=== PATIENT | female | born 1970 | race Caucasian/White ===

== ENCOUNTER 2024-11-21 20:23 | Emergency (ER) | payer OTHER ==
[~2024-11-21] VITALS: Ht 162.6 cm; Wt 59.0 kg
[2024-11-21] MEDS ORDERED: LEVO25TA9 PO (21:13)
[2024-11-21 22:42] LABS: BASOPHILS % (AUTO) 0.5 % (0.0-2.0); EOSINOPHILS # (AUTO) 0.1 K/uL (0.0-0.7); EOSINOPHILS % (AUTO) 0.7 % (0.0-7.0); HEMATOCRIT 44.5 % (31.2-41.9); HEMOGLOBIN 14.9 g/dL (10.9-14.3); LYMPHOCYTES # (AUTO) 1.8 K/uL (0.8-4.8); LYMPHOCYTES % (AUTO) 19.8 % (20.5-51.5); MEAN CORPUSCULAR HGB CONC 34 g/dL (32.3-35.6); MEAN CORPUSCULAR VOLUME 86.5 fL (75.5-95.3); MONOCYTES # (AUTO) 0.5 K/uL (0.1-1.30); MONOCYTES % (AUTO) 5.3 % (0.0-11.0); NEUTROPHILS # (AUTO) 6.6 K/uL (1.8-8.9); NEUTROPHILS % (AUTO) 73.7 % (38.5-71.5); PLATELET COUNT (AUTO) 242 K/uL (179-408); RED BLOOD CELL COUNT(AUTO) 5.14 MIL/uL (3.63-4.92); RED CELL DISTRIBUTION WIDTH 14.4 % (12.3-17.7); WHITE BLOOD COUNT (AUTO) 8.9 K/uL (3.8-11.8)
[2024-11-21] MEDS ORDERED: HYDROMORPHONE 1 MG/1 ML DISP.SYRIN ONE (22:44)
[2024-11-21] MEDS ORDERED: ONDANSETRON 4 MG/2 ML VIAL ONE (22:44)
[2024-11-21 22:48] LABS: CALCIUM 9.5 mg/dL (8.5-10.1); CREATININE 0.5 mg/dL (0.6-1.3); POTASSIUM 3.8 mmol/L (3.5-5.1)
[2024-11-21 22:49] LABS: DIFFERENTIAL COMMENT 1
[2024-11-21 22:55] LABS: ALBUMIN 3.9 g/dL (3.4-5.0); BILIRUBIN,DIRECT 0.2 mg/dL (0.0-0.2); BILIRUBIN,TOTAL 0.5 mg/dL (0.2-1.0); TOTAL PROTEIN, SERUM 8.5 g/dL (6.4-8.2)
[2024-11-21] MEDS: HYDROMORPHONE 1 MG/1 ML DISP.SYRIN IV ONE (23:00)
[2024-11-21] MEDS: IV NORMAL SALINE 1000 ML BAG IV ONE (23:00)
[2024-11-21] MEDS: ONDANSETRON 4 MG/2 ML VIAL IV ONE (23:00)
[2024-11-21 23:06] LABS: *BILIRUBIN,URIN NEGATIVE (NEGATIVE); *BLOOD, URINE 1+ (NEGATIVE); *CLARITY,URINE CLEAR (CLEAR); *COLOR,URINE YELLOW (YELLOW); *KETONES,URINE 1+ (NEGATIVE); *PROTEIN,URINE NEGATIVE (NEGATIVE); *UROBILINOGEN,URINE 0.2 E.U./dl (NORMAL); LEUKOCYTE ESTERASE ,URINE 1+ (NEGATIVE); NITRITE, URINE POSITIVE (NEGATIVE); PH,URINE 6.5 (5.0-8.0); UGLUCOSE NEGATIVE (NEGATIVE)
[2024-11-21 23:08] LABS: *URINE HCG, QUAL NEGATIVE (NEGATIVE)
[2024-11-21 23:16] LABS: BACTERIA,URINE FEW /HPF (NONE SEEN); RBC,URINE 0-3 /HPF (0-3); SQUAMOUS EPITHELIAL CELL,UR FEW /HPF (NONE SEEN)
[2024-11-21] MEDS ORDERED: ONDA4TAB11 PO (23:32)
[2024-11-21] MEDS ORDERED: FLUC200T8 PO (23:32)
[2024-11-21] MEDS ORDERED: NITR-84 PO (23:32)
[2024-11-21] MEDS ORDERED: HYDR-4209 PO (23:32)
[2024-11-21] MEDS ORDERED: NITROFURANTOIN/NITROFURAN MAC 100 MG CAPSULE PO ONE (23:49)
[2024-11-21] MEDS: NITROFURANTOIN/NITROFURAN MAC 100 MG CAPSULE PO ONE (23:55)
[2024-11-22 00:08] VITALS: BP 114/69; O2SAT 98
== END 2024-11-22 00:09 | disposition home or self-care (01) ==
LOC: ER 20:23
DX: N30.90 Cystitis, unspecified without hematuria (principal); N95.0 Postmenopausal bleeding; R11.2 Nausea with vomiting, unspecified; R51.9 Headache, unspecified; E03.9 Hypothyroidism, unspecified; Z79.890 Hormone replacement therapy; Z87.440 Personal history of urinary (tract) infections; Z20.822 Contact with and (suspected) exposure to COVID-19; Z88.7 Allergy status to serum and vaccine
CPT/HCPCS: 99285; 96374; 76856; 71045; 96375; 87426; 80076; 80048; 81001; 84703; 85025; 85730; 87086; 36415; J1171; J2405; J7040; A4606; A4663

== ENCOUNTER 2025-08-07 22:14 | Emergency (ER) | payer OTHER ==
[~2025-08-07] VITALS: Ht 162.6 cm; Wt 59.9 kg
[~2025-08-07 22:14] MED LIST: FLUC200T8 PO; HYDR-4209 PO; LEVO25TA9 PO; NITR-84 PO; ONDA4TAB11 PO
[2025-08-07 22:55] LABS: PLATELET COUNT (AUTO) 215 K/uL (179-408); RED BLOOD CELL COUNT(AUTO) 5.35 MIL/uL (3.63-4.92); RED CELL DISTRIBUTION WIDTH 15.0 % (12.3-17.7); WHITE BLOOD COUNT (AUTO) 9.0 K/uL (3.8-11.8)
[2025-08-07] MEDS ORDERED: ONDANSETRON 4 MG/2 ML VIAL ONE (23:02)
[2025-08-07] MEDS ORDERED: HYDROMORPHONE 1 MG/1 ML DISP.SYRIN ONE (23:03)
[2025-08-07 23:08] LABS: CREATININE 0.7 mg/dL (0.6-1.3); SODIUM SERUM 141 mmol/L (136-145); UREA NITROGEN, BLOOD 12 mg/dL (7-18)
[2025-08-07] MEDS: HYDROMORPHONE 1 MG/1 ML DISP.SYRIN IV ONE (23:08)
[2025-08-07] MEDS: ONDANSETRON 4 MG/2 ML VIAL IV ONE (23:08)
[2025-08-07] MEDS: IV NORMAL SALINE 1000 ML BAG IV ONE (23:08)
[2025-08-07 23:14] LABS: ASPARTATE AMINOTRANSFERASE 17 U/L (15-37); TOTAL PROTEIN, SERUM 7.7 g/dL (6.4-8.2)
[2025-08-08 00:30] VITALS: BP 119/79
[2025-08-08 01:15] LABS: *BILIRUBIN,URIN NEGATIVE (NEGATIVE); *BLOOD, URINE NEGATIVE (NEGATIVE); *COLOR,URINE YELLOW (YELLOW); *KETONES,URINE 1+ (NEGATIVE); *PROTEIN,URINE NEGATIVE (NEGATIVE); *UROBILINOGEN,URINE 0.2 E.U./dl (NORMAL); LEUKOCYTE ESTERASE ,URINE NEGATIVE (NEGATIVE); NITRITE, URINE NEGATIVE (NEGATIVE); UGLUCOSE NEGATIVE (NEGATIVE)
[2025-08-08 01:16] LABS: *CLARITY,URINE HAZY (CLEAR)
[2025-08-08 01:21] LABS: SQUAMOUS EPITHELIAL CELL,UR FEW /HPF (NONE SEEN); URINE AMORPHOUS PHOSPHATES MODERATE /HPF
[2025-08-08 01:57] VITALS: BP 122/80; O2SAT 99
== END 2025-08-08 01:26 | disposition home or self-care (01) ==
LOC: ER 22:14
DX: R51.9 Headache, unspecified (principal); R11.2 Nausea with vomiting, unspecified; Z79.890 Hormone replacement therapy; Z88.7 Allergy status to serum and vaccine
CPT/HCPCS: 99285; 96374; 70450; 71045; 96361; 96375; 80076; 80048; 83690; 85025; 84484 ×2; 36415 ×2; 93005; 81001; J2405; J1171; J7040; A4606; A4663